=== PATIENT | female | born 1985 | race Hispanic/Latino ===

== ENCOUNTER 2023-04-21 15:39 | Emergency (ER) | payer SELFPAY ==
[2023-04-21 15:41] VITALS: BP 118/50
[2023-04-21 16:02] LABS: Urine Albumin 2+ (Neg - Trace); Urine Bilirubin Negative (Negative); Urine Character Slightly Cloudy (Clear); Urine Color Yellow; Urine Glucose Negative (Negative); Urine Ketone Negative (Negative); Urine Leukocyte 2+ (Negative); Urine Nitrite Negative (Negative); Urine Occult Blood 4+ (Negative); Urine Specific Gravity 1.015 (<1.030); Urine Urobilinogen Negative (Neg - 1+)
[2023-04-21 16:12] LABS: HCG, Urine Qualitative Screen Negative
[2023-04-21 16:14] LABS: Urine Bacteria Few (Negative); Urine Squamous Cell 0-2 /LPF (Few); Urine White Cell 30-40 /HPF (0-5)
[2023-04-21 16:15] LABS: Urine Red Blood Cell 50-60 /HPF (0-2)
--- NOTE | 2023-04-21 16:44 | ED.GENMED ---
History of Present Illness
General
Chief Complaint: Urinary Symptoms
Time Seen by Provider: 04/21/23 16:15
Travel History
Have you had any contact with someone who has COVID-19?: No
Do you have any symptoms of coronavirus? Fever > 100 degrees, chills, cough, shortness of breath, sore throat, loss of taste or smell, muscle aches, or headache?: No
History of Present Illness
History of Present Illness:
37-year-old female presents the emergency department for evaluation of burning with urination along with frequency and urgency for the past several hours. She had similar symptoms last month, states her primary care physician prescribed her
medication but she is not certain what this was. Has never had a UTI in the past. Denies any abdominal pain or flank pain. No fevers or chills. She is monogamous with 1 sexual partner and denies concern for STI
Review of Systems
Review of Systems
Allergies reviewed?: Yes
All Other Systems: ROS reviewed and negative except as documented in HPI and ROS
Phy Exam
Physical Exam
Physical Exam:
GEN: Well appearing, NAD, WDWN
HEENT: Oral mucosa moist, no scleral icterus
Cardiac: Regular rate
Lung: No respiratory distress, no tachypnea
MSK: No gross deformity or injuries
Skin: Good color, no pallor or jaundice, no rashes
Neuro: AO x3, moves all extremities freely
Psych: Calm, cooperative
Course
Orders/Labs/Results
Orders:
Orders
04/21/23 15:45
Test Result ONCE
04/21/23 15:52
HCG, Urine Qualitative Screen Urgent
Date Specimen was Collected: 04/21/23
Time Specimen was Collected: 15:45
Urinalysis Reflex To Culture Urgent
Date Specimen was Collected: 04/21/23
Time Specimen was Collected: 15:45
Urine Microscopic Reflex Cult Urgent
Urine Culture Urgent
KESHA Source: U
Specimen Description:
Date Specimen was Collected: 04/21/23
Time Specimen was Collected: 15:45
Abnormal Lab Results
04/21/23
15:52
Ur Occult Blood Reflex 4+ A
(Negative)
Leukocyte Esterase Rfl 2+ A
(Negative)
Urine RBC 50-60 A /HPF
(0-2)
Urine WBC (Reflex) 30-40 A /HPF
(0-5)
Urine Bacteria (Reflex) Few A
(Negative)
Urine Albumin (Reflex) 2+ A
(Neg - Trace)
Vital Signs
Initial and Last Documented VS:
Initial Vital Signs
Temp Pulse Resp BP Pulse Ox
98.3 F 63 16 118/50 95
04/21/23 15:41 04/21/23 15:41 04/21/23 15:41 04/21/23 15:41 04/21/23 15:41
Last Documented Vital Signs
Temp Pulse Resp BP Pulse Ox
98.3 F 63 16 118/50 95
04/21/23 15:41 04/21/23 16:52 04/21/23 15:41 04/21/23 16:52 04/21/23 15:41
MDM/Problems Addressed
MDM/Problems Addressed:
Patient is clinically well, no signs of pyelonephritis. Vital signs are reassuring. Urinalysis consistent with acute UTI. Will start nitrofurantoin, primary care follow-up advised
*Critical Care Note
Total Time (30-74mins, 75-104mins- exclusive of procedures): Not Applicable
ED Attending Note
-
Portions of this chart may have been created with voice recognition software.� Occasional wrong word or��sound alike� substitutions may have occurred due to the inherent limitations of voice recognition software.
Discharge Plan
Departure
Patient Disposition: Home (Routine Discharge)
Date of Disposition: 04/21/23
Time of Disposition: 16:44
Patient with high blood pressure during this ER visit?: No
Discharge Problem:
Urinary tract infection
Instructions: Urinary Tract Infection, Adult (DC)
Prescriptions:
New
nitrofurantoin macrocrystal 100 mg capsule
100 mg PO BID 5 Days Qty: 10 0RF
No Action
multivitamin [Daily Multiple] 1 EACH tablet
1 ea PO DAILY
Interventions
Interventions:
*Risk Screen - Suicide Last Done: 04/21/23 16:52
*General Assessment Last Done: 04/21/23 15:41
*Neglect/Abuse Screening Last Done: 04/21/23 16:52
*ED COVID-19 Vaccine History Last Done: 04/21/23 15:41
*Nursing Disposition Last Done: 04/21/23 16:52
ED-Female Genitourinary Assessment Last Done: 04/21/23 16:46
Discharge Date and Time
Discharge Date/Time: 04/21/23 16:53
[2023-04-21 16:52] VITALS: BP 118/50
== END 2023-04-21 16:53 | disposition home or self-care (01) ==
LOC: EMR 15:39
PROVIDERS: Emergency Medicine; EMERGENCY PHYSICIAN Emergency Medicine
DX: N39.0 Urinary tract infection, site not specified (principal)
CPT/HCPCS: 99283; 81003; 81015; 81025; 87086

== ENCOUNTER → 2023-05-09 08:37 | Outpatient (REF) | payer OTHER, SELFPAY ==
[2023-05-09 09:20] LABS: Urine Albumin Negative (Neg - Trace); Urine Bilirubin Negative (Negative); Urine Character Slightly Cloudy (Clear); Urine Color Yellow; Urine Glucose Negative (Negative); Urine Ketone Negative (Negative); Urine Leukocyte 1+ (Negative); Urine Nitrite Negative (Negative); Urine Occult Blood Negative (Negative); Urine Specific Gravity 1.015 (<1.030); Urine Urobilinogen Negative (Neg - 1+)
[2023-05-09 09:54] LABS: Urine Mucus Few; Urine Squamous Cell >30 /LPF (Few)
[2023-05-09 09:55] LABS: Urine Amorphous Seen
[2023-05-09 09:56] LABS: Urine Bacteria Few (Negative); Urine Red Blood Cell 0-2 /HPF (0-2)
== END ==
LOC: CLINIC 08:37
PROVIDERS: ATTENDING PHYSICIAN Nurse Practitioner Acute Care
DX: N39.0 Urinary tract infection, site not specified (principal)
CPT/HCPCS: 81003; 81015; 87086

== ENCOUNTER → 2023-09-10 15:30 | Outpatient (REF) | payer OTHER, SELFPAY ==
[2023-09-10 16:14] LABS: Urine Albumin Negative (Neg - Trace); Urine Bilirubin Negative (Negative); Urine Character Slightly Cloudy (Clear); Urine Color Yellow; Urine Glucose Negative (Negative); Urine Ketone Negative (Negative); Urine Leukocyte 2+ (Negative); Urine Nitrite Negative (Negative); Urine Occult Blood Negative (Negative); Urine Specific Gravity 1.015 (<1.030); Urine Urobilinogen Negative (Neg - 1+)
[2023-09-10 16:23] LABS: Urine Squamous Cell >30 /LPF (Few)
[2023-09-10 16:24] LABS: Urine Bacteria Many (Negative); Urine Red Blood Cell 0-2 /HPF (0-2)
[2023-09-10 16:25] LABS: Urine Sperm Seen; Urine White Cell 26-30 /HPF (0-5)
== END ==
LOC: CLINIC 15:30
PROVIDERS: ATTENDING PHYSICIAN Nurse Practitioner Acute Care
DX: N39.0 Urinary tract infection, site not specified (principal)
CPT/HCPCS: 81003; 81015; 87086

== ENCOUNTER → 2023-10-03 06:50 | Outpatient (REF) | payer OTHER, SELFPAY | LOC: CLINIC 06:50 | PROVIDERS: ATTENDING PHYSICIAN Nurse Practitioner Acute Care | DX: R31.9 Hematuria, unspecified (principal) | CPT/HCPCS: 76770 ==

== ENCOUNTER 2024-07-01 09:24 | Emergency (ER) | payer SELFPAY ==
[2024-07-01 09:38] VITALS: BP 116/83
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
[2024-07-01] MEDS: MOTRIN 600 MG PO (11:23)
== END 2024-07-01 11:36 | disposition home or self-care (01) ==
LOC: EMR 09:24
PROVIDERS: EMERGENCY PHYSICIAN Emergency Medicine; FAMILY PHYSICIAN Nurse Practitioner Adult Health
DX: S22.31XA Fracture of one rib, right side, initial encounter for closed fracture (principal); V18.0XXA Pedal cycle driver injured in noncollision transport accident in nontraffic accident, initial encounter
CPT/HCPCS: 99283; 71111

== ENCOUNTER → 2024-07-27 14:07 | Outpatient (REF) | payer OTHER, SELFPAY | LOC: REG 14:07 | PROVIDERS: ATTENDING PHYSICIAN Nurse Practitioner Adult Health | DX: M54.50 Low back pain, unspecified (principal) | CPT/HCPCS: 72110 ==

== ENCOUNTER → 2025-02-16 09:44 | Outpatient (REF) | payer OTHER, SELFPAY ==
[2025-02-16 10:20] LABS: Hematocrit 34.0 % (37.0-47.0); Hemoglobin 11.9 g/dL (12.0-16.0); Mean Corp Hgb Conc. 35.0 g/dL (33.0-37.0); Mean Corpuscular Volume 85.4 fL (81.0-99.0); Platelet Count 169 10^3/uL (130-400); Red Cell Dist. Width 12.3 % (11.5-14.5)
[2025-02-16 11:16] LABS: ALT (SGPT) 14 U/L (0-35); AST (SGOT) 19 U/L (14-36); Albumin 4.7 g/dl (3.5-5.0); Alkaline Phosphatase 85 U/L (38-126); Blood Urea Nitrogen 9 mg/dl (7-17); Calcium 9.2 mg/dl (8.4-10.2); Carbon Dioxide 23 mmol/L (22-30); Chloride 105 mmol/L (98-107); Glucose 96 mg/dl (70-99); HDL Cholesterol 57 mg/dl; LDL Cholesterol, Calculated 129 mg/dl; Potassium 3.9 mmol/L (3.5-5.1); Sodium 137 mmol/L (135-145); Total Protein 7.6 g/dl (6.3-8.2); Very Low Density Lipoprotein 13 mg/dl (0-30); eGFR > 60.00
== END ==
LOC: CLINIC 09:44
PROVIDERS: ATTENDING PHYSICIAN Nurse Practitioner Adult Health
DX: Z00.00 Encounter for general adult medical examination without abnormal findings (principal)
CPT/HCPCS: 36415; 80053; 80061; 84443; 85027